=== PATIENT | female | born 1990 | race Two or more races ===

== ENCOUNTER 2024-10-11 06:28 | Day surgery (SDC) | payer BC, SELFPAY ==
[2024-10-11] VITALS (10 sets, daily range): BP systolic 72–118; BP diastolic 51–78; BMI 29.0
[2024-10-11] MEDS: DILAUDID 0.25 MG IV (11:47)
== END 2024-10-11 12:55 | disposition home or self-care (01) ==
LOC: SDS 06:28
PROVIDERS: ATTENDING PHYSICIAN Otolaryngology
DX: J34.2 Deviated nasal septum (principal); J32.0 Chronic maxillary sinusitis; J32.2 Chronic ethmoidal sinusitis
CPT/HCPCS: 31255; 30520; 88304; 88311